=== PATIENT | female | born 1985 | race Caucasian/White ===

== ENCOUNTER 2016-10-26 15:28 | Emergency (ER) | payer MEDICAID ==
[~2016-10-26] VITALS: Ht 165.1 cm; Wt 62.0 kg
[~2016-10-26 15:28] MED LIST: ONDA4TAB7 SL; SEASTAB2 PO
[2016-10-26 15:31] VITALS: BP 144/71; PULSE 77; RESP 20; TEMP 97.9; O2SAT 100
--- NOTE | 2016-10-26 15:51 | PD ---
HPI Chief Complaint: Skin Problem Time Seen by Provider: 15:49 Travel History International Travel<30 days: No Contact w/Intl Traveler<30days: No Traveled to known affect area: No History of Present Illness HPI 31-year-old female presents to emergency Department with complaint of right great toe swelling and pain that she noticed this morning. Droop. She is also complaining of being treated for staph infection for the past year, or so, to her left upper thigh area and right calf area. She is concerned of both those areas because there are wound site still have not healed and has been there for the past year. She denies redness, swelling, drainage from the sites. Denies fever, vomiting. Reports feeling nauseated. Says she is taking antibiotics twice in the last year for this staph infection; last took them about 3 weeks ago. She has allergies to Fioricet, naproxen, Percocet, Toradol, Ultram. Has no medical complaints. No other modifying factors or associated signs and symptoms. PFSH Past Medical History Hx Anticoagulant Therapy: No Anxiety: Yes Cardiovascular Problems: No Chemotherapy: No Cerebrovascular Accident: No Diabetes: No Diminished Hearing: No Gastrointestinal Disorders: Yes Headaches: Yes Implanted Vascular Access Dvce: No Psychiatric: Yes Reproductive: Yes (OVARIAN CYSTS) Respiratory: Yes (ANXIETY) Immunizations Current: Yes ?: Not LMP: 10/11/16 : 4 Para: 3 Miscarriage: 1 Past Surgical History Abdominal Surgery: Yes (CHOLYCYSTECTOMY) Section: Yes (3) Cholecystectomy: Yes Gynecologic Surgery: Yes (C SECTIONS X3) Neurologic Surgery: No Oral Surgery: Yes (TEETH REMOVED) Other Surgery: Yes Social History Alcohol Use: No Tobacco Use: No Substance Use: No Allergies-Medications (Allergen,Severity, Reaction): Coded Allergies: Fioricet (Verified Allergy, Intermediate, VOMITING, 10/26/16) Naproxen (Verified Allergy, Intermediate, RASH, VOMIT, 10/26/16) Percocet (Verified Allergy, Intermediate, RASH, VOMIT, 10/26/16) Toradol (Verified Allergy, Intermediate, RASH, VOMIT, 10/26/16) Ultram (Verified Allergy, Intermediate, RASH, VOMIT, 10/26/16) Reported Meds & Prescriptions Reported Meds & Active Scripts Active Ibuprofen 800 Mg Tab 800 Mg PO Q6HR PRN Keflex (Cephalexin) 500 Mg Cap 500 Mg PO Q6H 10 Days Bactrim DS (Sulfamethoxazole-Trimethoprim) 800-160 Mg Tab 1 Tab PO BID 10 Days Ondansetron Odt 4 Mg Tab 4 Mg SL Q6HR PRN Review of Systems Except as stated in HPI: all other systems reviewed are Neg Physical Exam Narrative GENERAL: Well-nourished, well-developed female patient, in no acute distress; afebrile, nontoxic-appearing SKIN: Warm and dry. Left lateral upper thigh with scarring noted and 3 small ( less than 0.5 cm) areas in the scarring that are dry scabbed; without erythema, edema, drainage. Right lateral calf with approximately 0.5 cm dry, scabbed area with surrounding scarring and without erythema, edema, drainage. No signs of infection. Right great toe is edematous and with mild erythema and warmth to touch; bottom of feet are dirty and there appears to be some minor small cuts and scrapes to the bottom of the big toe that may have caused infection of the toe. HEAD: Atraumatic. Normocephalic. EYES: Pupils equal and round. No scleral icterus. No injection or drainage. ENT: Mucosa pink and moist. Airway patent. NECK: Trachea midline. CARDIOVASCULAR: Regular rate. RESPIRATORY: No accessory muscle use. GASTROINTESTINAL: Lap. MUSCULOSKELETAL: No obvious deformities. No clubbing. No cyanosis. No edema. NEUROLOGICAL: Awake and alert. Oriented 3. No obvious cranial nerve deficits. Motor grossly within normal limits. Normal speech. PSYCHIATRIC: Appropriate mood and affect; insight and judgment normal. Data Data Last Documented VS Vital Signs Date Time Temp Pulse Resp B/P Pulse Ox O2 Delivery O2 Flow Rate FiO2 10/26/16 15:31 97.9 77 20 144/71 100 Room Air MDM Medical Decision Making Medical Screen Exam Complete: Yes Emergency Medical Condition: Yes Medical Record Reviewed: Yes Differential Diagnosis Nonhealing nonsurgical wounds, cellulitis, felon, paronychia Narrative Course 31-year-old female with cellulitis of the right great toe; and nonhealing wounds to the left lateral thigh and the right lateral calf. The nonhealing wounds have been present for the past year and the patient has been being treated for staph infection. There are no signs of infection to the nonhealing wound areas at this time. The patient is afebrile and nontoxic-appearing. She denies fever, vomiting. Reports feeling nauseated. Bactrim, Keflex, ibuprofen prescribed for home. Instructed patient to follow up with primary care provider. Patient verbalizes understanding and agreement with treatment plan. Patient is medically cleared and stable for discharge. Discussed reasons to return to the emergency department. Patient agrees with treatment plan. The patients vital signs are stable and the patient is stable for outpatient follow- up and treatment. Patient discharged home, stable and in no acute distress. Diagnosis Primary Impression: Cellulitis of great toe, right Additional Impression: Nonhealing nonsurgical wound Referrals: Senior It Engineer Primary Care Physician Patient Instructions: Cellulitis (ED), General Instructions Additional Instructions: Complete full course of antibiotics Warm compresses to the affected area Keep area clean and dry Ibuprofen or Tylenol as directed and as needed for pain and inflammation Follow-up with primary care provider Return to emergency department immediately with worsening of symptoms Med/Other Pt SpecificInfo: Prescription(s) given Scripts Ibuprofen 800 Mg [id number] Mg PO Q6HR PRN (PAIN) #30 TAB Ref 0 Prov:Vanessa Araujo 10/26/16 Cephalexin (Keflex)500 Mg [id number] Mg PO Q6H 10 Days Ref 0 Prov:Vanessa Araujo 10/26/16 Sulfamethoxazole-Trimethoprim (Bactrim DS)800-160 Mg Tab1 Tab PO BID 10 Days Ref 0 Prov:Vanessa Araujo 10/26/16 Disposition: 01 DISCHARGE HOME Condition: Stable Vanessa Araujo Oct 26, 2016 15:50
[2016-10-26] MEDS ORDERED: BACT800T5 PO (15:54)
[2016-10-26] MEDS ORDERED: CEPH-460 PO (15:54)
[2016-10-26] MEDS ORDERED: IBUP800T23 PO (15:55)
[2016-11-08] MEDS ORDERED: MEDR150I IM (11:41)
== END 2016-10-26 15:51 | disposition home or self-care (01) ==
LOC: NEPK 15:28
DX: L03.031 Cellulitis of right toe (principal); R11.0 Nausea; F41.9 Anxiety disorder, unspecified; Z79.899 Other long term (current) drug therapy; Z88.5 Allergy status to narcotic agent; Z88.8 Allergy status to other drugs, medicaments and biological substances
CPT/HCPCS: 99284

== ENCOUNTER 2016-11-20 18:42 | Emergency (ER) | payer MEDICAID ==
[~2016-11-20] VITALS: Ht 165.1 cm; Wt 57.4 kg
[~2016-11-20 18:42] MED LIST changes: +BACT800T5 PO; +CEPH-460 PO; +IBUP800T23 PO; +MEDR150I IM; -SEASTAB2 PO
[2016-11-20 19:01] VITALS: BP 128/80; PULSE 88; RESP 16; TEMP 98.4; O2SAT 98
[2016-11-20] MEDS ORDERED: SODIUM CHLOR 0.9% 1000 ML INJ 1,000 ML IV SCH (19:22)
--- NOTE | 2016-11-20 19:25 | PD ---
HPI Chief Complaint: Abdominal Pain Time Seen by Provider: 19:15 Travel History International Travel<30 days: No Contact w/Intl Traveler<30days: No Traveled to known affect area: No History of Present Illness HPI 31-year-old female here for evaluation of abdominal pain, nausea, and vomiting. Symptoms started about 5 hours ago. The patient is unable to describe the pain that she is having. History of cholecystectomy and C-sections. LMP was 2 weeks ago. No vaginal bleeding or discharge. No urinary symptoms. Pain is constant, moderate to severe, worsening over the last 5 hours. PFSH Past Medical History Hx Anticoagulant Therapy: No Anxiety: Yes Cardiovascular Problems: No Chemotherapy: No Cerebrovascular Accident: No Diabetes: No Diminished Hearing: No Gastrointestinal Disorders: Yes Headaches: Yes Implanted Vascular Access Dvce: No Psychiatric: Yes Reproductive: Yes (OVARIAN CYSTS) Respiratory: Yes (ANXIETY) Immunizations Current: Yes Pancreatitis: Yes ?: Unknown : 4 Para: 3 Miscarriage: 1 Past Surgical History Abdominal Surgery: Yes (CHOLYCYSTECTOMY) Section: Yes (3) Cholecystectomy: Yes Gynecologic Surgery: Yes (C SECTIONS X3) Neurologic Surgery: No Oral Surgery: Yes (TEETH REMOVED) Other Surgery: Yes Social History Alcohol Use: No Tobacco Use: No Substance Use: No Allergies-Medications (Allergen,Severity, Reaction): Coded Allergies: Fioricet (Verified Allergy, Intermediate, VOMITING, 11/20/16) Naproxen (Verified Allergy, Intermediate, RASH, VOMIT, 11/20/16) Percocet (Verified Allergy, Intermediate, RASH, VOMIT, 11/20/16) Toradol (Verified Allergy, Intermediate, RASH, VOMIT, 11/20/16) Ultram (Verified Allergy, Intermediate, RASH, VOMIT, 11/20/16) Tylenol #3 (Verified Allergy, Mild, cramping, 11/20/16) Reported Meds & Prescriptions Reported Meds & Active Scripts Active Medroxyprogesterone Inj 150 Mg/Ml Inj 150 Mg IM Q90D Ibuprofen 800 Mg Tab 800 Mg PO Q6HR PRN Ondansetron Odt 4 Mg Tab 4 Mg SL Q6HR PRN Review of Systems Except as stated in HPI: all other systems reviewed are Neg Physical Exam Narrative GENERAL: Well-developed, well-nourished, no apparent distress. SKIN: Focused skin assessment warm/dry. HEAD: Atraumatic. Normocephalic. EYES: Pupils equal and round. No scleral icterus. No injection or drainage. ENT: Mucous membranes pink and moist. CARDIOVASCULAR: Regular rate and rhythm. RESPIRATORY: No accessory muscle use. Clear to auscultation. Breath sounds equal bilaterally. GASTROINTESTINAL: Abdomen soft, nondistended. Mild diffuse tenderness without peritoneal signs. Normal bowel sounds. No hernias. MOLDING LINE ASSISTANT: Exam performed in the presence of a female nurse. Normal external genitalia. Normal cervix. Scant/whitish/[id number] vaginal discharge. No CMT. No adnexal masses or tenderness. MUSCULOSKELETAL: No obvious deformities. No clubbing. No cyanosis. No edema. NEUROLOGICAL: Awake and alert. No obvious cranial nerve deficits. Motor grossly within normal limits. Normal speech. PSYCHIATRIC: Appropriate mood and affect; insight and judgment normal. Data Data Last Documented VS Vital Signs Date Time Temp Pulse Resp B/P Pulse Ox O2 Delivery O2 Flow Rate FiO2 11/20/16 20:20 16 11/20/16 20:16 100 Room Air 11/20/16 19:50 76 116/76 11/20/16 19:01 98.4 Orders Complete Blood Count With Diff (11/20/16 19:22) Comprehensive Metabolic Panel (11/20/16 19:22) Prothrombin Time / Inr (Pt) (11/20/16 19:22) Act Partial Throm Time (Ptt) (11/20/16 19:22) Urinalysis - C+S If Indicated (11/20/16 19:22) Ct Abd/Pel W Iv Contrast(Rout) (11/20/16 19:22) Iv Access Insert/Monitor (11/20/16 19:22) Ecg Monitoring (11/20/16 19:22) Oximetry (11/20/16 19:22) Morphine Inj (Morphine Inj) (11/20/16 19:30) Ondansetron Inj (Zofran Inj) (11/20/16 19:30) Sodium Chlor 0.9% 1000 Ml Inj (Ns 1000 M (11/20/16 19:22) Sodium Chloride 0.9% Flush (Ns Flush) (11/20/16 19:30) Ed Urine Pregnancytest Poc (11/20/16 19:22) Gc And Chlamydia Pcr (11/20/16 20:25) Wet Prep Profile (11/20/16 20:25) Iohexol 350 Inj (Omnipaque 350 Inj) (11/20/16 21:09) Morphine Inj (Morphine Inj) (11/20/16 21:30) Dicyclomine Inj (Bentyl Inj) (11/20/16 21:30) Labs Laboratory Tests Test 11/20/16 11/20/16 11/20/16 19:28 19:35 21:20 Urine Color BROWN Urine Turbidity CLOUDY Urine pH 5.5 Urine Specific [place] 1.018 Urine Protein NEG mg/dL Urine Glucose (UA) NEG mg/dL Urine Ketones NEG mg/dL Urine Occult Blood TRACE Urine Nitrite NEG Urine Bilirubin NEG Urine Leukocyte Esterase NEG Urine RBC 0-3 /hpf Urine WBC 3-5 /hpf Urine Squamous Epithelial > 8 /hpf Cells Urine Bacteria FEW /hpf Urine Mucus MOD /lpf Microscopic Urinalysis Comment CULT NOT INDICATED White Blood Count 10.3 TH/MM3 Red Blood Count 4.42 MIL/MM3 Hemoglobin 13.6 GM/DL Hematocrit 39.4 % Mean Corpuscular Volume 89.1 FL Mean Corpuscular Hemoglobin 30.8 PG Mean Corpuscular Hemoglobin 34.5 % Concent Red Cell Distribution Width 11.6 % Platelet Count 298 TH/MM3 Mean Platelet Volume 7.8 FL Neutrophils (%) (Auto) 72.6 % Lymphocytes (%) (Auto) 19.4 % Monocytes (%) (Auto) 7.0 % Eosinophils (%) (Auto) 0.5 % Basophils (%) (Auto) 0.5 % Neutrophils # (Auto) 7.4 TH/MM3 Lymphocytes # (Auto) 2.0 TH/MM3 Monocytes # (Auto) 0.7 TH/MM3 Eosinophils # (Auto) 0.1 TH/MM3 Basophils # (Auto) 0.1 TH/MM3 CBC Comment DIFF FINAL Differential Comment Prothrombin Time 11.2 SEC Prothromb Time International 1.0 RATIO Ratio Activated Partial 25.9 SEC Thromboplast Time Sodium Level 140 MEQ/L Potassium Level 3.9 MEQ/L Chloride Level 104 MEQ/L Carbon Dioxide Level 29.4 MEQ/L Anion Gap 7 MEQ/L Blood Urea Nitrogen 10 MG/DL Creatinine 0.59 MG/DL Estimat Glomerular Filtration 120 ML/MIN Rate Random Glucose 94 MG/DL Calcium Level 9.5 MG/DL Total Bilirubin 2.8 MG/DL Aspartate Amino Transf 12 U/L (AST/SGOT) Alanine Aminotransferase 19 U/L (ALT/SGPT) Alkaline Phosphatase 40 U/L Total Protein 7.7 GM/DL Albumin 4.5 GM/DL Clue Cells (Wet Prep) NONE SEEN Vaginal Trichomonas (Wet Prep) NONE SEEN Vaginal Yeast (Wet Prep) NONE SEEN MDM Medical Decision Making Medical Screen Exam Complete: Yes Emergency Medical Condition: Yes Medical Record Reviewed: Yes Differential Diagnosis Appendicitis, colitis, IBS, UTI, cystitis, ovarian cyst, ovarian torsion, , ectopic Narrative Course Vital signs show heart rate 88, blood pressure 128/80, pulse ox 98% on room air , oral temp of 98.4F. CBC is unremarkable. CMP is unremarkable. UA is not suggestive of UTI. Wet prep: Negative for yeast, negative for clue cells, negative for Trichomonas. CT abdomen pelvis: CONCLUSION: 1. Trace pelvic free fluid. 2. Otherwise unremarkable study. 3. Status post cholecystectomy. Patient was made aware of all findings. She requested another dose of pain medication. She is otherwise resting comfortably. There are no peritoneal signs on her exam. She has been seen in the emergency department several times in the past for recurrent abdominal pain. I do not believe that there is an acute intra-abdominal process based on lab and imaging findings. She reports that she has an appointment for a colonoscopy and endoscopy in one week. I encouraged her to keep this appointment. She was informed on when to return to the emergency department. She verbalizes understanding and agreement with plan. Diagnosis Primary Impression: Abdominal pain Qualified Code: R10.9 - Abdominal pain, unspecified location Referrals: Rotating Equipment Specialist 1 week Primary Care Physician 3 days Additional Instructions: Follow-up with your drying tunnel operator next week as scheduled. Return to the emergency department for worsening symptoms or any other concerns. Disposition: 01 DISCHARGE HOME Condition: Stable Teddy Bunch MD Nov 20, 2016 19:25
[2016-11-20] MEDS ORDERED: ONDANSETRON HCL 4 MG/2 ML VIAL IVP ONE (19:30)
[2016-11-20] MEDS ORDERED: SODIUM CHLORIDE 0.9% FLUSH 10 ML FLUSH IV FLUSH PRN (19:30)
[2016-11-20] MEDS ORDERED: MORPHINE SULFATE 4 MG/ML INJ IV PUSH ONE ×2 (19:30→21:30)
[2016-11-20 19:43] LABS: AUTOMATED NEUTROPHIL # 7.4 TH/MM3 (1.8-7.7); BASOPHIL # 0.1 TH/MM3 (0-0.2); BASOPHIL % 0.5 % (0.0-2.0); EOSINOPHIL # 0.1 TH/MM3 (0-0.4); EOSINOPHIL % 0.5 % (0.0-4.0); HEMATOCRIT 39.4 % (35.0-46.0); HEMO FLAGS DIFF FINAL; LYMPH % 19.4 % (9.0-44.0); MEAN CELL VOLUME 89.1 FL (80.0-100.0); MEAN CORPUSCULAR HEMOGLOBIN 30.8 PG (27.0-34.0); MEAN CORPUSCULAR HGB CONC 34.5 % (32.0-36.0); NEUT % 72.6 % (16.0-70.0); PLATELET COUNT 298 TH/MM3 (150-450); RED BLOOD COUNT 4.42 MIL/MM3 (4.00-5.30); RED CELL DISTRIBUTION WIDTH 11.6 % (11.6-17.2); WHITE BLOOD COUNT 10.3 TH/MM3 (4.0-11.0)
[2016-11-20 19:46] LABS: BLOOD, URINE TRACE (NEG); GLUCOSE,URINE NEG (NEG); KETONE, URINE NEG (NEG); NITRITE,URINE NEG (NEG); PH, URINE 5.5 (5.0-8.5)
[2016-11-20 19:50] VITALS: BP 116/76; PULSE 76; RESP 16; O2SAT 99
[2016-11-20 19:53] LABS: CHLORIDE 104 MEQ/L (98-107); POTASSIUM 3.9 MEQ/L (3.5-5.1); SODIUM (NA) 140 MEQ/L (136-145)
[2016-11-20 19:57] LABS: ANION GAP 7 MEQ/L (5-15); BICARBONATE 29.4 MEQ/L (21.0-32.0); BLOOD UREA NITROGEN 10 MG/DL (7-18)
[2016-11-20 19:59] LABS: URINE COLOR BROWN (YELLW/STRAW)
[2016-11-20 20:00] LABS: ALT (GPT) 19 U/L (10-53); AST (GOT) 12 U/L (15-37); GLOMERULAR FILTRATION RATE 120 ML/MIN (>89)
[2016-11-20 20:00] LABS: BACTERIA, URINE FEW /hpf; COMMENT (UR) CULT NOT INDICATED; CULTURE IF INDICATED CULT NOT INDICATED; MUCUS URINE MOD /lpf (OCC); RBC, URINE 0-3 /hpf (0-3); SQUAMOUS EPITHELIAL CELL URINE > 8 /hpf (0-5)
[2016-11-20 20:01] LABS: TOTAL BILIRUBIN ADULT 2.8 MG/DL (0.2-1.0)
[2016-11-20 20:02] LABS: ALKALINE PHOSPHATASE 40 U/L (45-117)
[2016-11-20 20:10] LABS: APTT (PATIENT) 25.9 SEC (24.3-30.1); PROTHROMBIN TIME - PATIENT 11.2 SEC (9.8-11.6)
[2016-11-20 20:16] VITALS: O2SAT 100
[2016-11-20] MEDS ORDERED: IOHEXOL 350 MG/ML 10 ML VIAL (for RAD DIAG) IV ONE (21:09)
--- NOTE | 2016-11-20 21:15 | RADRPT ---
EXAM DATE/TIME: 11/20/2016 20:49 [facility] COMPARISON: CT ABDOMEN & PELVIS W CONTRAST, January 01, 2015, 12:08. INDICATIONS : Bilateral lower abdominal pain. Nausea. Vomiting. IV CONTRAST: 100 cc Omnipaque 350 (iohexol) IV ORAL CONTRAST: No oral contrast ingested. RADIATION DOSE: 7.03 CTDIvol (mGy) MEDICAL HISTORY : Pancreatitis. SURGICAL HISTORY : Cholecystectomy. section. ENCOUNTER: Initial ACUITY: 3 days PAIN SCALE: 7/10 LOCATION: Bilateral lower quadrant TECHNIQUE: Volumetric scanning of the abdomen and pelvis was performed. Using automated exposure control and ad justment of the mA and/or kV according to patient size, radiation dose was kept as low as reasonably achievable to obtain optimal diagnostic quality images. DICOM format image data is available electro nically for review and comparison. FINDINGS: LOWER LUNGS: The visualized lower lungs are clear. LIVER: Homogeneous density without lesion. There is no dilation of the biliary tree. Cholecystectomy clips. SPLEEN: Normal size without lesion. PANCREAS: Within normal limits. KIDNEYS: Normal in size and shape. There is no mass, stone or hydronephrosis. ADRENAL GLANDS: Within normal limits. VASCULAR: There is no aortic aneurysm. BOWEL/MESENTERY: The stomach, small bowel, and colon demonstrate no acute abnormality. There is no free intraperitone al air or fluid. Appendix is normal. ABDOMINAL WALL: Within normal limits. RETROPERITONEUM: There is no lymphadenopathy. BLADDER: No wall thickening or mass. REPRODUCTIVE: Trace free fluid.. INGUINAL: There is no lymphadenopathy or hernia. MUSCULOSKELETAL: Within normal limits for patient age. CONCLUSION: 1. Trace pelvic free fluid. 2. Otherwise unremarkable study. 3. Status post cholecystectomy. Roger Loredo MD on November 20, 2016 at 21:11 Board Certified Radiologist. This report was verified electronically.
[2016-11-20] MEDS ORDERED: DICYCLOMINE HCL 20 MG/2 ML VIAL IM ONE (21:30)
[2016-11-20 22:13] VITALS: BP 122/74; PULSE 78; RESP 16; TEMP 98.5; O2SAT 100
[2016-11-21 04:39] LABS: CHLAMYDIA PCR NOT DETECTED (NOT DETECT); NEISSERIA PCR NOT DETECTED (NOT DETECT)
[2016-11-29] MEDS ORDERED: MOBI15TA PO (11:28)
[2016-11-29] MEDS ORDERED: CELE200C PO (11:41)
== END 2016-11-20 22:17 | disposition home or self-care (01) ==
LOC: PHED 18:42
DX: R10.9 Unspecified abdominal pain (principal); R11.2 Nausea with vomiting, unspecified; Z90.49 Acquired absence of other specified parts of digestive tract
CPT/HCPCS: 74177; 80053; 81001; 84703; 85025; 85610; 85730; 87210; 87491; 87591; 96361; 96372; 96374; 96375; 99285; J0500; J2270; J2405; J7030; Q9967